=== PATIENT | female | born 1960 | race Hispanic/Latino ===

== ENCOUNTER → 2018-05-25 | Outpatient (CLI) | payer OTHER | END | disposition home or self-care (01) | LOC: RAH 09:17 | PROVIDERS: ATTEND Internal Medicine Critical Care Medicine | DX: M47.22 Other spondylosis with radiculopathy, cervical region (principal) | CPT/HCPCS: 72040 ==

== ENCOUNTER → 2018-10-19 | Outpatient (CLI) | payer OTHER | END | disposition home or self-care (01) | LOC: SHCH 15:02 | PROVIDERS: ATTEND Internal Medicine Cardiovascular Disease | DX: I50.20 Unspecified systolic (congestive) heart failure (principal); I51.7 Cardiomegaly; R60.9 Edema, unspecified | CPT/HCPCS: 93306 ==

== ENCOUNTER → 2018-10-21 | Outpatient (CLI) | payer OTHER ==
[~2018-10-21] VITALS: Ht 152.4 cm; Wt 100.7 kg
[~2018-10-21] MED LIST: REGADENOSON 0.4 MG/5 ML PF SYG IVP SCH
== END | disposition home or self-care (01) ==
LOC: SHCH 08:23
PROVIDERS: ATTEND Internal Medicine Cardiovascular Disease
DX: I25.10 Atherosclerotic heart disease of native coronary artery without angina pectoris (principal); I10 Essential (primary) hypertension
CPT/HCPCS: 78452; 93017; 96374; A9500 ×2; J2785

== ENCOUNTER 2018-12-22 06:01 | Observation (INO) | payer OTHER ==
[2018-12-20 11:00] LABS: APPEARANCE,URINE CLEAR (CLEAR); BILIRUBIN,URINE NEGATIVE (NEGATIVE); COLOR,URINE YELLOW (YELLOW); GLUCOSE, URINE (UA) 100 mg/dL (NEGATIVE); KETONES,URINE NEGATIVE (NEGATIVE); LEUKOCYTE ESTERASE ,URINE SMALL (NEGATIVE); NITRATE,URINE NEGATIVE (NEGATIVE); OCCULT BLOOD,URINE TRACE-LYSED (NEGATIVE); PROTEIN,URINE >=300 mg/dL (NEGATIVE); UROBILINOGEN,URINE 0.2 mg/dL (0.2-1.0)
[2018-12-20 11:01] LABS: BASOPHILS % (AUTO) 1.2 % (0.0-5.0); HEMATOCRIT 33.6 % (36-48); LYMPHOCYTES % (AUTO) 18.4 % (21.0-51.0); MEAN CORPUSCULAR HEMOGLOBIN 26.2 pg (27.0-33.0); MEAN CORPUSCULAR HGB CONC 32.3 g/dL (32.0-36.0); MEAN CORPUSCULAR VOLUME 81.1 fL (79-99); MONOCYTES % (AUTO) 6.6 % (3.0-13.0); NEUTROPHILS % (AUTO) 67.8 % (40.0-77.0); PLATELET COUNT (AUTO) 230 K/uL (130-400); RED BLOOD CELL COUNT(AUTO) 4.14 MIL/uL (4.00-5.50); WHITE BLOOD COUNT (AUTO) 6.3 K/uL (4.8-10.8)
[2018-12-20 11:12] LABS: BACTERIA,URINE Rare /HPF (None Seen); CREATININE 3.4 mg/dL (0.5-1.5); POTASSIUM 4.7 mmol/L (3.5-5.1); RBC,URINE 0-1 /HPF (0-1); SQUAMOUS EPITHELIAL CELL,UR Few /HPF (0-2); WBC,URINE 0-1 /HPF (0-1)
[2018-12-20 11:42] LABS: INR 1.03 (0.85-1.15); PARTIAL THROMBOPLASTIN TIME 27.7 SEC (26.3-35.5); PROTHROMBIN TIME 10.8 SEC (9.6-11.6)
[2018-12-20 13:05] VITALS: BP 180/80
[2018-12-21] MEDS: ACETYLCYSTEINE 600 MG CAPSULE PO SCH (07:45)
--- NOTE | 2018-12-21 08:40 | NUR ---
ABNORMAL LABS ABNORMAL LABS REPORTED TO KAYODE SANDHU FOR DR. HARDIN, BUN 60, CREAT 3.4,UA LEUKEST SMALL, NITRATES NEGATIVE, H & H 10.9 & 33.6. PER ALEXANDER, HE WILL CALL ME BACK.
--- NOTE | 2018-12-21 12:30 | NUR ---
ORDERS CALL BACK FROM KAYODE PISANO. ORDERED TO GIVE NS 250 ML BOLUS UPON ARRIVAL, THEN NS 70 ML/HR UNTIL PT GOES TO PROCEDURE. REPEAT BMP AT NOON. GIVE MUCOMYST 600 MG PO X1 UPON ARRIVAL.
[~2018-12-22] VITALS: Ht 152.4 cm; Wt 103.2 kg
[2018-12-22] VITALS (20 sets, daily range): BP systolic 108–182; BP diastolic 51–83
[~2018-12-22 06:01] MED LIST changes: +ASPI-555 PO; +CLOP75TA32 PO; +ESCI20TA36 PO; +GABA-531 PO; +GLIP5TAB11 PO; +ISOS1TAB2 PO; +LEVO25TA54 PO; +METO-408 PO; -REGADENOSON 0.4 MG/5 ML PF SYG IVP SCH; +ROSU10TA28 PO; +TORS20TA4 PO; +[UNRECOGNIZED DRUG - OTHER] PO; +[UNRECOGNIZED DRUG - OTHER] PO
--- NOTE | 2018-12-22 06:05 | NUR ---
PATIENT ARRIVED PATIENT ARRIVED TO DAY PATIENT ACCOMPANIED BY SON (SHILPA). PATIENT AAO X3, RESPIRATIONS UNLABORED, VITAL SIGNS STABLE, PATIENT DENIES ANY PAIN AT THIS TIME. PROCEDURE VERIFIED WITH PATIENT AND EXPLAINED TO HER, PATIENT VERBALIZED UNDERSTANDING. PATIENT STATES THAT SHE IS VERY NERVOUS ABOUT THE PROCEDURE, REASSURED PATIENT THAT EVERYTHING WOULD BE OK AND TO USE CALL [facility] IF SHE NEEDS ANYTHING. HOSPITAL ROUTINE EXPLAINED TO PATIENT AND PATIENT VERBALIZED UNDERSTANDING. BED IN LOWEST POSITION, CALL [facility] IN REACH, SIDERAILS UP X2.
[2018-12-22] MEDS: SODIUM CHLORIDE 0.9% 1000ML 1,000 ML IV SCH ×2 (09:10→18:06)
[2018-12-22] MEDS ORDERED: NITROGLYCERIN 5 MG/ML 10 ML VIAL IV ONE (10:33)
[2018-12-22] MEDS ORDERED: IOHEXOL-350 75 ML VIAL IV ONE (10:34)
[2018-12-22] MEDS ORDERED: IOHEXOL 350 MG/ML 100ML INFUS..BTL IV ONE (10:34)
[2018-12-22] MEDS ORDERED: IOHEXOL-350 50ML VIAL IV ONE (10:34)
[2018-12-22] MEDS ORDERED: LIDOCAINE HCL 2% 20ML ONE (10:34)
--- NOTE | 2018-12-22 10:45 | NUR ---
PATIENT TRANSFERRED PATIENT TAKEN TO HAND II CUTTER VIA BED BY RADHA FENG. CALLED PATIENT'S SON AND NOTIFIED HIM THAT PATIENT WAS BEING TAKEN TO HAND II CUTTER, PER SON HE WILL ARRIVE SHORTLY.
[2018-12-22] MEDS ORDERED: MIDAZOLAM HCL 1 MG/ML 2ML VIAL ONE (11:09)
[2018-12-22] MEDS ORDERED: FENTANYL CITRATE PF 50 MCG/1 ML 2ML VIAL ONE (11:10)
[2018-12-22] MEDS ORDERED: HYDRALAZINE HCL 20 MG/ML VIAL ONE ×3 (11:44→12:03)
[2018-12-22] MEDS ORDERED: SODIUM CHLORIDE 0.9% 1000ML 1,000 ML IV SCH (11:50)
[2018-12-22] MEDS ORDERED: GLUCAGON 1MG KIT 1 MG ML IM PRN (12:00)
[2018-12-22] MEDS ORDERED: DEXTROSE 50%-WATER 50 ML DISP.SYRIN IV PRN (12:00)
[2018-12-22] MEDS ORDERED: NITROGLYCERIN 0.4 MG SL TAB SL PRN (12:00)
--- NOTE | 2018-12-22 12:45 | NUR ---
PATIENT RETURNED PATIENT BROUGHT BACK FROM CAR RECORD CLERK VIA BED BY RADHA FENG AND RADHA GREEN. PATIENT AWAKE AND ORIENTED, PATIENT DROWSY BUT RESPONDS TO VERBAL COMMANDS. PATIENT DENIES ANY PAIN AT THIS TIME, VITAL SIGNS STABLE, REQUIRES OXYGEN AT 2LITERS VIA NASAL CANULA TO MAINTAIN SATS >90%. PATIENT'S SON AT BEDSIDE. PATIENT INSTRUCTED TO REMAIN MIROS[place]VA FLAT AND KEEP RIGHT LEG STRAIGHT AND FLAT FOR 4 HOURS. PATIENT VERBALIZED UNDERSTANDING.
[2018-12-22] MEDS ORDERED: ACETAMINOPHEN 325 MG TAB PO PRN (14:00)
[2018-12-22] MEDS: ACETYLCYSTEINE 600 MG CAPSULE PO SCH (14:45)
[2018-12-22] MEDS: GABAPENTIN 300 MG CAPSULE PO SCH ×2 (14:46→21:49)
[2018-12-22] MEDS: HYDRALAZINE HCL 20 MG/ML VIAL IV PRN ×2 (15:35→17:37)
--- NOTE | 2018-12-22 15:50 | NUR ---
report given CALLED REPORT TO RADHA KAUFMAN. GAVE REPORT USING SBAR, ALL QUESTIONS ANSWERED REGARDING PATIENT'S MEDICAL STATUS.
--- NOTE | 2018-12-22 16:10 | NUR ---
PATIENT TRANSFERRED TO FLOOR PATIENT TAKEN TO THIRD FLOOR RM 301 BY RADHA ANSARI AND RADHA POLLOCK. RADHA KAUFMAN IN ROOM WITH PATIENT.
[2018-12-22] MEDS: INSULIN HUMULIN R 100 UNIT/ML 3ML SQ SCH ×2 (16:30→21:00)
[2018-12-22] MEDS: CALCIUM ACETATE 667 MG CAPSULE PO SCH (17:29)
[2018-12-22] MEDS: METOPROLOL TARTRATE 25 MG TAB PO SCH (21:49)
[2018-12-22] MEDS: GLIPIZIDE 5 MG TABLET PO SCH (21:50)
[2018-12-23 03:56] VITALS: BP 129/50
[2018-12-23 04:59] LABS: CREATININE 3.1 mg/dL (0.5-1.5); POTASSIUM 4.3 mmol/L (3.5-5.1)
[2018-12-23] MEDS: INSULIN HUMULIN R 100 UNIT/ML 3ML SQ SCH ×2 (06:25→11:30)
[2018-12-23] MEDS: ACETYLCYSTEINE 600 MG CAPSULE PO SCH (08:00)
[2018-12-23 08:35] VITALS: BP 156/65
[2018-12-23] MEDS: CALCIUM ACETATE 667 MG CAPSULE PO SCH ×2 (08:45→12:14)
[2018-12-23] MEDS: GABAPENTIN 300 MG CAPSULE PO SCH (08:46)
[2018-12-23] MEDS: GLIPIZIDE 5 MG TABLET PO SCH (08:46)
[2018-12-23] MEDS: METOPROLOL TARTRATE 25 MG TAB PO SCH (08:46)
[2018-12-23] MEDS: SODIUM CHLORIDE 0.9% 1000ML 1,000 ML IV SCH (08:47)
[2018-12-23] MEDS ORDERED: CITALOPRAM 20 MG TABLET PO SCH (09:00)
[2018-12-23] MEDS ORDERED: CLOPIDOGREL BISULFATE 75 MG TAB PO SCH (09:00)
[2018-12-23] MEDS ORDERED: ATORVASTATIN CALCIUM 20 MG TABLET PO SCH (09:00)
[2018-12-23] MEDS ORDERED: ASPIRIN 81 MG EC TAB PO SCH (09:00)
[2018-12-23] MEDS ORDERED: LEVOTHYROXINE 25 MCG TABLET PO SCH (09:00)
[2018-12-23] MEDS ORDERED: [UNRECOGNIZED DRUG - OTHER] PO SCH (09:00)
[2018-12-23] MEDS ORDERED: BIDIL PO SCH (09:00)
[2018-12-23] MEDS ORDERED: TORSEMIDE 20 MG TAB PO SCH (09:00)
[2018-12-23 11:58] VITALS: BP 180/66
--- NOTE | 2018-12-23 12:31 | NUR ---
MD ROUNDS DR. BRUNER VISITED WITH PATIENT. POC DISCUSSED. ORDER RECEIVED TO D/C PATIENT HOME. CONTINUE HOME MEDICATIONS AND F/U WITH CARDIOLOGY AND PCP.
== END 2018-12-23 13:20 | disposition home or self-care (01) ==
LOC: DAH 06:01 → DAHIP 06:02 → DAH 06:02 → 3AH 16:25
PROVIDERS: ADMIT Internal Medicine Critical Care Medicine; ATTEND Internal Medicine Critical Care Medicine
DX: I25.10 Atherosclerotic heart disease of native coronary artery without angina pectoris (principal); I13.2 Hypertensive heart and chronic kidney disease with heart failure and with stage 5 chronic kidney disease, or end stage renal disease; I50.43 Acute on chronic combined systolic (congestive) and diastolic (congestive) heart failure; N18.5 Chronic kidney disease, stage 5; E11.22 Type 2 diabetes mellitus with diabetic chronic kidney disease; E66.9 Obesity, unspecified; E78.2 Mixed hyperlipidemia; F41.8 Other specified anxiety disorders; Z90.49 Acquired absence of other specified parts of digestive tract; Z90.710 Acquired absence of both cervix and uterus; Z79.899 Other long term (current) drug therapy
CPT/HCPCS: 36415 ×2; 71045; 80048 ×2; 81001; 82948 ×4; 85025; 85610; 85730; 93005; 93454; 96374; 96376; A4215; A4216; A4221; A4222; A4223 ×3; A4606; C1894 ×2; G0378 ×25; J0360 ×5; J1644; J2250; J3010; J3490 ×2; J7030 ×2; Q9965; Q9967; 96360; 96361; 99156; 99157

== ENCOUNTER 2019-01-04 10:46 | Observation (INO) | payer OTHER ==
[~2019-01-04] VITALS: Ht 152.4 cm; Wt 103.1 kg
[2019-01-04 11:40] LABS: BASOPHILS % (AUTO) 1.3 % (0.0-5.0); EOSINOPHILS % (AUTO) 3.1 % (0.0-8.0); HEMATOCRIT 29.1 % (36-48); LYMPHOCYTES % (AUTO) 10.8 % (21.0-51.0); MEAN CORPUSCULAR HEMOGLOBIN 26.3 pg (27.0-33.0); MEAN CORPUSCULAR HGB CONC 32.5 g/dL (32.0-36.0); MEAN CORPUSCULAR VOLUME 80.7 fL (79-99); MONOCYTES % (AUTO) 5.5 % (3.0-13.0); NEUTROPHILS % (AUTO) 79.3 % (40.0-77.0); NUCLEATED RED BLOOD CELLS 0.1 % (0.0-0.19); PLATELET COUNT (AUTO) 257 K/uL (130-400); RED CELL DISTRIBUTION WIDTH 17.9 % (11.0-15.5); WHITE BLOOD COUNT (AUTO) 7.8 K/uL (4.8-10.8)
[2019-01-04 11:48] LABS: CREATININE 4.1 mg/dL (0.5-1.5); POTASSIUM 4.7 mmol/L (3.5-5.1)
[2019-01-04 11:53] LABS: ALBUMIN 2.6 g/dL (3.5-5.0); BILIRUBIN,TOTAL 0.6 mg/dL (0.2-1.0); TOTAL PROTEIN, SERUM 6.7 g/dL (6.0-8.3)
[2019-01-04] MEDS ORDERED: FUROSEMIDE 10 MG/ML 4ML VIAL ONE (13:18)
[2019-01-04] MEDS ORDERED: SODIUM CHLORIDE 0.9% 50 ML IV ONE (13:19)
[2019-01-04] MEDS ORDERED: HEPARIN SODIUM 5000UNIT/ML 1ML VIAL SQ SCH (15:15)
[2019-01-04] MEDS ORDERED: HYDRALAZINE HCL 20 MG/ML VIAL IV PRN (15:15)
[2019-01-04] MEDS: AMLODIPINE BESYLATE 5 MG TAB PO SCH (16:15)
[2019-01-04] MEDS ORDERED: CALCIUM ACETATE 667 MG CAPSULE PO SCH (17:00)
[2019-01-04] MEDS ORDERED: AMLODIPINE BESYLATE 5 MG TAB PO ONE (17:04)
[2019-01-04 17:44] VITALS: BP 136/60
[2019-01-04] MEDS ORDERED: LABE200T5 PO (18:14)
[2019-01-04] MEDS ORDERED: GABA-531 PO (18:14)
[2019-01-04] MEDS ORDERED: CALC667C10 PO (18:14)
[2019-01-04] MEDS ORDERED: GLIP5POW MC (18:14)
[2019-01-04] MEDS ORDERED: TORS20TA4 PO (18:14)
[2019-01-04 19:45] VITALS: BP 176/67
[2019-01-04] MEDS ORDERED: METOPROLOL TARTRATE 25 MG TAB PO SCH (21:00)
[2019-01-04] MEDS ORDERED: ATORVASTATIN CALCIUM 20 MG TABLET PO SCH (21:00)
[2019-01-04] MEDS: ISOSORB DINIT PO SCH (21:00)
[2019-01-04] MEDS: HYDRALAZINE HCL PO SCH (21:00)
[2019-01-04] MEDS: LABETALOL HCL 200 MG TABLET PO SCH (21:01)
[2019-01-04] MEDS: GABAPENTIN 100 MG CAPSULE PO SCH (21:01)
[2019-01-04] MEDS: HEPARIN SODIUM 5000UNIT/ML 1ML VIAL SQ SCH (21:25)
[2019-01-04 23:42] VITALS: BP 123/64
[2019-01-05 03:56] VITALS: BP 142/62
[2019-01-05 04:12] LABS: HEMATOCRIT 29.3 % (36-48); MEAN CORPUSCULAR HEMOGLOBIN 25.6 pg (27.0-33.0); MEAN CORPUSCULAR HGB CONC 32.1 g/dL (32.0-36.0); MEAN CORPUSCULAR VOLUME 79.9 fL (79-99); PLATELET COUNT (AUTO) 287 K/uL (130-400); RED BLOOD CELL COUNT(AUTO) 3.67 MIL/uL (4.00-5.50); RED CELL DISTRIBUTION WIDTH 17.6 % (11.0-15.5); WHITE BLOOD COUNT (AUTO) 8.3 K/uL (4.8-10.8)
[2019-01-05 04:35] LABS: CREATININE 4.2 mg/dL (0.5-1.5); POTASSIUM 4.5 mmol/L (3.5-5.1); THYROID STIMULATING HORMONE 3.98 uIU/mL (0.36-3.74)
[2019-01-05 04:49] LABS: B-TYPE NATRIURETIC PEPTIDE 538 pg/mL (0-100)
[2019-01-05] MEDS ORDERED: LEVOTHYROXINE 25 MCG TABLET PO SCH (06:30)
[2019-01-05 07:21] VITALS: BP 143/72
[2019-01-05] MEDS ORDERED: CITALOPRAM 20 MG TABLET PO SCH (09:00)
[2019-01-05] MEDS: HYDRALAZINE HCL PO SCH ×2 (09:00→14:00)
[2019-01-05] MEDS ORDERED: CLOPIDOGREL BISULFATE 75 MG TAB PO SCH (09:00)
[2019-01-05] MEDS: ISOSORB DINIT PO SCH ×2 (09:00→14:00)
[2019-01-05] MEDS ORDERED: [UNRECOGNIZED DRUG - OTHER] PO SCH (09:00)
[2019-01-05] MEDS ORDERED: ASPIRIN 81 MG EC TAB PO SCH (09:00)
[2019-01-05] MEDS: AMLODIPINE BESYLATE 5 MG TAB PO SCH (09:11)
[2019-01-05] MEDS: CALCIUM ACETATE 667 MG CAPSULE PO SCH ×3 (09:11→17:00)
[2019-01-05] MEDS: GABAPENTIN 100 MG CAPSULE PO SCH (09:12)
[2019-01-05] MEDS: LABETALOL HCL 200 MG TABLET PO SCH (09:12)
[2019-01-05] MEDS: HEPARIN SODIUM 5000UNIT/ML 1ML VIAL SQ SCH (09:13)
[2019-01-05 10:58] VITALS: BP 142/58
[2019-01-05] MEDS ORDERED: FUROSEMIDE 10 MG/ML 10ML VIAL IVP SCH (13:00)
[2019-01-05 15:15] VITALS: BP 166/72
== END 2019-01-05 19:00 | disposition home or self-care (01) ==
LOC: EDH 10:46 → EDHIP 10:47 → 2AH 18:29
PROVIDERS: ADMIT Internal Medicine Critical Care Medicine; ATTEND Internal Medicine Critical Care Medicine
DX: I13.2 Hypertensive heart and chronic kidney disease with heart failure and with stage 5 chronic kidney disease, or end stage renal disease (principal); E11.22 Type 2 diabetes mellitus with diabetic chronic kidney disease; N18.5 Chronic kidney disease, stage 5; I50.33 Acute on chronic diastolic (congestive) heart failure; R60.0 Localized edema; N17.9 Acute kidney failure, unspecified; I25.10 Atherosclerotic heart disease of native coronary artery without angina pectoris; E78.5 Hyperlipidemia, unspecified; R00.1 Bradycardia, unspecified; D64.9 Anemia, unspecified; E03.9 Hypothyroidism, unspecified; F41.9 Anxiety disorder, unspecified; E66.01 Morbid (severe) obesity due to excess calories; E87.70 Fluid overload, unspecified; F32.9 Major depressive disorder, single episode, unspecified; Z95.818 Presence of other cardiac implants and grafts; Z90.710 Acquired absence of both cervix and uterus; Z98.61 Coronary angioplasty status; Z90.49 Acquired absence of other specified parts of digestive tract; Z79.02 Long term (current) use of antithrombotics/antiplatelets; Z79.82 Long term (current) use of aspirin; Z79.899 Other long term (current) drug therapy; Z68.41 Body mass index [BMI] 40.0-44.9, adult
CPT/HCPCS: 36415 ×2; 71045 ×2; 80048; 80053; 82948 ×4; 83880; 84443; 84484; 85025; 85027; 87804 ×2; 93005 ×2; 93970; 96372 ×2; 96374; 99284; G0378 ×29; J1644 ×2; J1940 ×2

== ENCOUNTER 2019-09-03 16:10 | Inpatient (IN) | payer OTHER ==
[~2019-09-03] VITALS: Ht 152.4 cm; Wt 91.6 kg
[~2019-09-03 16:10] MED LIST changes: +CALC667C10 PO; +GLIP5POW MC; -GLIP5TAB11 PO; +LABE200T5 PO; -[UNRECOGNIZED DRUG - OTHER] PO
[2019-09-03] MEDS ORDERED: SODIUM CHLORIDE 0.9% 1000ML 1,000 ML IV ONE (16:46)
[2019-09-03] MEDS ORDERED: CEFTRIAXONE SODIUM 2 GM VIAL ONE (16:46)
[2019-09-03 17:03] LABS: BASOPHILS % (AUTO) 0.5 % (0.0-5.0); EOSINOPHILS % (AUTO) 2.3 % (0.0-8.0); HEMATOCRIT 36.1 % (36-48); MEAN CORPUSCULAR HEMOGLOBIN 26.9 pg (27.0-33.0); MEAN CORPUSCULAR VOLUME 81.5 fL (79-99); MONOCYTES % (AUTO) 6.8 % (3.0-13.0); NEUTROPHILS % (AUTO) 78.1 % (40.0-77.0); PLATELET COUNT (AUTO) 270 K/uL (130-400); RED BLOOD CELL COUNT(AUTO) 4.43 MIL/uL (4.00-5.50); RED CELL DISTRIBUTION WIDTH 15.8 % (11.0-15.5); WHITE BLOOD COUNT (AUTO) 8.7 K/uL (4.8-10.8)
[2019-09-03 17:10] LABS: INR 0.99 (0.85-1.15); PARTIAL THROMBOPLASTIN TIME 24.1 SEC (26.3-35.5); PROTHROMBIN TIME 10.7 SEC (9.6-11.6)
[2019-09-03 17:18] LABS: ALBUMIN 3.6 g/dL (3.5-5.0); BILIRUBIN,TOTAL 0.5 mg/dL (0.2-1.0); CREATININE 5.8 mg/dL (0.5-1.5); TOTAL PROTEIN, SERUM 8.3 g/dL (6.0-8.3); TROPONIN I 0.15 ng/mL (0.00-0.06)
[2019-09-03 17:28] LABS: POTASSIUM 2.6 mmol/L (3.5-5.1)
[2019-09-03 17:49] LABS: APPEARANCE,URINE Clear (CLEAR); BILIRUBIN,URINE Negative (NEGATIVE); COLOR,URINE Yellow (YELLOW); GLUCOSE, URINE (UA) Negative (NEGATIVE); KETONES,URINE Negative (NEGATIVE); LEUKOCYTE ESTERASE ,URINE Trace (NEGATIVE); NITRATE,URINE Positive (NEGATIVE); OCCULT BLOOD,URINE Trace (NEGATIVE); PH,URINE 6.5 (5.0-8.0); PROTEIN,URINE POS 2+ mg/dL (NEGATIVE); UROBILINOGEN,URINE 0.2 mg/dL (0.2-1.0)
[2019-09-03] MEDS ORDERED: ASPIRIN 325 MG TABLET ONE (17:51)
[2019-09-03] MEDS ORDERED: LIDOCAINE HCL-MPF 1% 2ML VIAL ONE (17:51)
[2019-09-03] MEDS ORDERED: POTASSIUM CHLORIDE 20MEQ/100ML 100 ML IV ONE (17:51)
[2019-09-03 18:05] LABS: BACTERIA,URINE Rare /HPF (None Seen); RBC,URINE 0-1 /HPF (0-1); SQUAMOUS EPITHELIAL CELL,UR Few /HPF (0-2); WBC,URINE 0-1 /HPF (0-1)
[2019-09-03] MEDS ORDERED: LIDOCAINE HCL-MPF 1% 2ML VIAL IV PRN (19:15)
[2019-09-03] MEDS ORDERED: POTASSIUM CHLORIDE 10MEQ/100ML 100 ML IV PRN (19:15)
[2019-09-03] MEDS ORDERED: POTASSIUM CHLORIDE 10% ELIXIR 20 MEQ/15 ML UDCUP PO PRN (19:15)
[2019-09-03] MEDS ORDERED: ONDANSETRON HCL 4 MG/2 ML VIAL IVP PRN (19:30)
[2019-09-03] MEDS ORDERED: ACETAMINOPHEN 325 MG TAB PO PRN (19:30)
[2019-09-03 20:35] VITALS: BP 146/62
[2019-09-03] MEDS ORDERED: IRON PO (20:40)
[2019-09-03] MEDS ORDERED: GLIP5TAB11 PO (20:40)
[2019-09-03] MEDS ORDERED: [UNRECOGNIZED DRUG - OTHER] PO (20:40)
[2019-09-03] MEDS ORDERED: VITAMIN B 12 (20:40)
[2019-09-03] MEDS ORDERED: SODIUM BICAR PO (20:40)
[2019-09-03] MEDS ORDERED: FERR325T22 PO (20:40)
[2019-09-03] MEDS ORDERED: CALC0.253 PO (20:40)
[2019-09-03] MEDS ORDERED: METO2.5T2 PO (20:40)
[2019-09-03] MEDS ORDERED: CHOL500045 PO (20:40)
[2019-09-03] MEDS: INSULIN R PO SS1/2 SQ SCH (21:00)
[2019-09-03] MEDS: POTASSIUM CHLORIDE 10 MEQ/TAB.SR PO PRN ×2 (21:24→23:30)
[2019-09-03] MEDS: SODIUM CHLORIDE 0.9% 1000ML 1,000 ML IV SCH (21:27)
[2019-09-04] VITALS: BP 138/41
[2019-09-04] MEDS: POTASSIUM CHLORIDE 10 MEQ/TAB.SR PO PRN ×2 (02:07→04:27)
[2019-09-04 03:56] VITALS: BP 141/47
[2019-09-04] MEDS: INSULIN R PO SS1/2 SQ SCH ×4 (06:05→21:00)
[2019-09-04 06:07] LABS: HEMATOCRIT 33.6 % (36-48); MEAN CORPUSCULAR HEMOGLOBIN 27.2 pg (27.0-33.0); MEAN CORPUSCULAR HGB CONC 32.7 g/dL (32.0-36.0); MEAN CORPUSCULAR VOLUME 83.2 fL (79-99); RED BLOOD CELL COUNT(AUTO) 4.04 MIL/uL (4.00-5.50); RED CELL DISTRIBUTION WIDTH 15.8 % (11.0-15.5)
[2019-09-04] MEDS: SODIUM CHLORIDE 0.9% 1000ML 1,000 ML IV SCH (06:11)
[2019-09-04 06:24] LABS: CREATININE 5.5 mg/dL (0.5-1.5); POTASSIUM 3.4 mmol/L (3.5-5.1)
[2019-09-04 08:00] VITALS: BP 111/60
[2019-09-04 11:00] VITALS: BP 173/50
--- NOTE | 2019-09-04 12:00 | NUR ---
CONSULT CALLED DR. RYAN'S OFFICE REGARDING CONSULT. NO ANSWER AT THIS TIME.
--- NOTE | 2019-09-04 14:55 | NUR ---
INITIAL CALL TO PT, NO ANSWER, CALL TO SON AGNES; STATES HE LIVES WITH PATIENT AND AUNT- PATIENT USES A CANE, IS INDEPENDENT OF ADLS, DOES NOT DRIVE, HAS NO PROVIDER SERVICES, SEES DR. HOUGH AT [facility]; HOME IS SAFE AND ACCESSIBLE. NUMBER OF NURSE TODAY GIVEN, ELSI UPSET THAT NO ONE HAS HAS CALLED HIM TO UPDATE ON PATIENT/ ADVISED HIM TO CALL NURSE FOR INFO. DCP IS HOME. PATIENT WITH GFR OF 5. POSSIBLE HD THIS ADMIT Addendum: 09/04/19 at 1502 by JM MERLOS RN CM Amended: Links added.
[2019-09-04] MEDS ORDERED: CALCITRIOL 0.25 MCG CAPSULE PO SCH (15:00)
[2019-09-04 15:30] VITALS: BP 146/49
[2019-09-04] MEDS ORDERED: CEFTRIAXONE SODIUM 1 GM IVP SCH (17:00)
[2019-09-04] MEDS: CALCIUM ACETATE 667 MG CAPSULE PO SCH (17:08)
--- NOTE | 2019-09-04 17:19 | NUR ---
[id number] PATIENT SIGNED IM LETTER, I FAXED IM LETTER TO [phone] AND PLACED IN CHART UNDER CONSENT TAB.
[2019-09-04 20:00] VITALS: BP 152/39
[2019-09-04] MEDS ORDERED: ATORVASTATIN CALCIUM 20 MG TABLET PO SCH (21:00)
[2019-09-04] MEDS: ISOSORB DINIT PO SCH (21:00)
[2019-09-04] MEDS: [UNRECOGNIZED DRUG - OTHER] PO SCH (21:00)
[2019-09-04] MEDS: HYDRALAZINE HCL PO SCH (21:00)
[2019-09-04] MEDS ORDERED: LABETALOL HCL 200 MG TABLET PO SCH (21:00)
[2019-09-04] MEDS: SODIUM BICARBONATE 650 MG TAB PO SCH (21:43)
[2019-09-04] MEDS: GABAPENTIN 300 MG CAPSULE PO SCH (21:43)
[2019-09-05] VITALS: BP 121/43
[2019-09-05] MEDS: SODIUM CHLORIDE 0.9% 1000ML 1,000 ML IV SCH (00:50)
[2019-09-05 04:00] VITALS: BP 131/44
[2019-09-05 05:53] LABS: HEMATOCRIT 32.1 % (36-48); MEAN CORPUSCULAR HEMOGLOBIN 27.6 pg (27.0-33.0); MEAN CORPUSCULAR HGB CONC 32.7 g/dL (32.0-36.0); MEAN CORPUSCULAR VOLUME 84.5 fL (79-99); RED BLOOD CELL COUNT(AUTO) 3.8 MIL/uL (4.00-5.50); RED CELL DISTRIBUTION WIDTH 15.9 % (11.0-15.5); WHITE BLOOD COUNT (AUTO) 6.8 K/uL (4.8-10.8)
[2019-09-05] MEDS: INSULIN R PO SS1/2 SQ SCH ×2 (06:11→11:30)
[2019-09-05 06:26] LABS: ALBUMIN 2.8 g/dL (3.5-5.0); CREATININE 4.5 mg/dL (0.5-1.5); PHOSPHORUS 3.7 mg/dL (2.5-4.9); POTASSIUM 3.2 mmol/L (3.5-5.1)
[2019-09-05] MEDS ORDERED: LEVOTHYROXINE 25 MCG TABLET PO SCH (06:30)
[2019-09-05 07:27] VITALS: BP 180/66
[2019-09-05] MEDS: CALCIUM ACETATE 667 MG CAPSULE PO SCH ×2 (08:00→12:00)
[2019-09-05] MEDS ORDERED: CYANOCOBALAMIN (VITAMIN B-12) 1,000 MCG TABLET PO SCH (09:00)
[2019-09-05] MEDS: HYDRALAZINE HCL PO SCH ×2 (09:00→12:52)
[2019-09-05] MEDS ORDERED: ASPIRIN 81 MG EC TAB PO SCH (09:00)
[2019-09-05] MEDS ORDERED: CITALOPRAM 20 MG TABLET PO SCH (09:00)
[2019-09-05] MEDS ORDERED: IRON 65 MG PO SCH (09:00)
[2019-09-05] MEDS: [UNRECOGNIZED DRUG - OTHER] PO SCH (09:00)
[2019-09-05] MEDS: ISOSORB DINIT PO SCH ×2 (09:00→12:52)
[2019-09-05] MEDS ORDERED: CLOPIDOGREL BISULFATE 75 MG TAB PO SCH (09:00)
[2019-09-05] MEDS ORDERED: CHOLECALCIFEROL 125 MCG PO SCH (09:00)
[2019-09-05] MEDS ORDERED: FERROUS SULFATE 325 MG TABLET.DR PO SCH (09:00)
[2019-09-05] MEDS ORDERED: METOPROLOL SUCCINATE 50 MG TAB.SR.24H PO SCH ×2 (09:00)
[2019-09-05] MEDS: SODIUM BICARBONATE 650 MG TAB PO SCH ×2 (09:15→14:00)
[2019-09-05] MEDS: GABAPENTIN 300 MG CAPSULE PO SCH ×2 (09:15→14:00)
[2019-09-05 10:49] VITALS: BP 184/65
== END 2019-09-05 16:30 | disposition home or self-care (01) | DRG 683 ==
LOC: EDH 16:10 → INTOOBSV 18:02 → EDHIP 18:02 → OBSVTOIN 18:02 → 3BH 19:28
PROVIDERS: ADMIT Internal Medicine Critical Care Medicine; ATTEND Internal Medicine Critical Care Medicine
DX: N17.9 Acute kidney failure, unspecified (principal); I50.22 Chronic systolic (congestive) heart failure; I13.2 Hypertensive heart and chronic kidney disease with heart failure and with stage 5 chronic kidney disease, or end stage renal disease; N39.0 Urinary tract infection, site not specified; E87.3 Alkalosis; N18.5 Chronic kidney disease, stage 5; I25.10 Atherosclerotic heart disease of native coronary artery without angina pectoris; E03.9 Hypothyroidism, unspecified; E78.5 Hyperlipidemia, unspecified; E66.01 Morbid (severe) obesity due to excess calories; R29.6 Repeated falls; D63.1 Anemia in chronic kidney disease; E11.22 Type 2 diabetes mellitus with diabetic chronic kidney disease; E86.9 Volume depletion, unspecified; S40.022A Contusion of left upper arm, initial encounter; S20.229A Contusion of unspecified back wall of thorax, initial encounter; Z68.39 Body mass index [BMI] 39.0-39.9, adult; Z90.710 Acquired absence of both cervix and uterus; Z90.49 Acquired absence of other specified parts of digestive tract; Y93.89 Activity, other specified; Y92.89 Other specified places as the place of occurrence of the external cause; Y99.8 Other external cause status
CPT/HCPCS: 36415; 70450; 71045; 80048; 80053; 80069; 81001; 82550; 82948; 83605; 83735; 83874; 84145; 84484; 85025; 85027; 85610; 85730; 87040; 87088; 87804; 93005; 93306; 93356; G0378; J0696; J3480; J3490; J7030

== ENCOUNTER 2020-03-06 06:16 | Day surgery (SDC) | payer OTHER ==
[2020-03-01 10:09] LABS: BASOPHILS % (AUTO) 0.6 % (0.0-5.0); EOSINOPHILS % (AUTO) 2.4 % (0.0-8.0); HEMATOCRIT 40.1 % (36-48); LYMPHOCYTES % (AUTO) 16.8 % (21.0-51.0); MEAN CORPUSCULAR HEMOGLOBIN 28.4 pg (27.0-33.0); MEAN CORPUSCULAR HGB CONC 31.4 g/dL (32.0-36.0); MEAN CORPUSCULAR VOLUME 90.3 fL (79-99); MONOCYTES % (AUTO) 4.8 % (3.0-13.0); NEUTROPHILS % (AUTO) 74.8 % (40.0-77.0); PLATELET COUNT (AUTO) 246 K/uL (130-400); RED BLOOD CELL COUNT(AUTO) 4.44 MIL/uL (4.00-5.50); RED CELL DISTRIBUTION WIDTH 15.4 % (11.0-15.5); WHITE BLOOD COUNT (AUTO) 7.2 K/uL (4.8-10.8)
[2020-03-01 10:24] LABS: INR 0.96 (0.85-1.15); PARTIAL THROMBOPLASTIN TIME 24.4 SEC (26.3-35.5); PROTHROMBIN TIME 10.4 SEC (9.6-11.6)
[2020-03-01 10:25] LABS: ALBUMIN 3.3 g/dL (3.5-5.0); BILIRUBIN,TOTAL 0.3 mg/dL (0.2-1.0); CREATININE 3.9 mg/dL (0.5-1.5); POTASSIUM 4.5 mmol/L (3.5-5.1); TOTAL PROTEIN, SERUM 7.4 g/dL (6.0-8.3)
[2020-03-05 12:31] VITALS: BP 198/73
[~2020-03-06] VITALS: Ht 152.4 cm; Wt 93.4 kg
[2020-03-06] VITALS (19 sets, daily range): BP systolic 133–190; BP diastolic 45–80
[~2020-03-06 06:16] MED LIST changes: -ASPI-555 PO; +ASPI-556 PO; -CALC667C10 PO; +CYAN-52 PO; -GABA-531 PO; +GABA100C PO; -GLIP5POW MC; +GLIP5TAB11 PO; -ISOS1TAB2 PO; -LABE200T5 PO; +LOSA100T58 PO; -METO-408 PO; -TORS20TA4 PO; +VIT D PO; -[UNRECOGNIZED DRUG - OTHER] PO
[2020-03-06] MEDS: CEFAZOLIN SODIUM 1 GM VIAL IVP SCH ×2 (06:30→08:48)
[2020-03-06] MEDS: SODIUM CHLORIDE 0.9% 500ML 500 ML IV SCH ×4 (07:00→10:34)
[2020-03-06] MEDS ORDERED: LIDOCAINE PF 2% 5ML ABBOJECT ONE (07:43)
[2020-03-06] MEDS ORDERED: SUCCINYLCHOLINE CHLORIDE 20 MG/ML 10 ML VIAL ONE (07:43)
[2020-03-06] MEDS ORDERED: DEXAMETHASONE SOD PHOSPHATE 10MG/ML 1ML VIAL ONE (07:43)
[2020-03-06] MEDS ORDERED: GLYCOPYRROLATE 1 MG/5 ML SYRINGE ONE (07:44)
[2020-03-06] MEDS ORDERED: PROPOFOL 10 MG/ML 20ML VIAL IV ONE (07:44)
[2020-03-06] MEDS ORDERED: ONDANSETRON HCL 4 MG/2 ML VIAL ONE (07:44)
[2020-03-06] MEDS ORDERED: NEOSTIGMINE 5MG/5ML SYR IV ONE (07:44)
[2020-03-06] MEDS ORDERED: MIDAZOLAM HCL 1 MG/ML 2ML VIAL ONE (07:44)
[2020-03-06] MEDS ORDERED: ROCURONIUM 10MG/1ML SYR 10 MG/ML ML ONE (07:44)
[2020-03-06] MEDS ORDERED: FENTANYL CITRATE PF 50 MCG/1 ML 2ML VIAL ONE (07:45)
[2020-03-06] MEDS ORDERED: BUPIVACAINE/PF 0.5% 30ML VIAL ONE (08:34)
[2020-03-06] MEDS ORDERED: EPHEDRINE SULFATE 50 MG/ML AMPULE ONE (08:49)
[2020-03-06] MEDS ORDERED: ALBUMIN (HUMAN) 25% 100 ML IV ONE (08:53)
[2020-03-06] MEDS ORDERED: SODI325T PO (08:59)
[2020-03-06] MEDS ORDERED: LABETALOL HCL 5 MG/ML 20ML VIAL IV ONE (09:28)
--- NOTE | 2020-03-06 11:45 | NUR ---
DISCHARGE VERBAL AND WRITTEN DISCHARGE INSTRUCTIONS PROVIDED TO PATIENT AND SON-SHILPA VIA PHONE- VERBALIZED UNDERSTANDING. NEW WRITTEN RX PROVIDED TO PATIENT. NO DISTRESS NOTED. PERITONEAL CATHETER SITE DRESSING- CLEAN, DRY, AND INTACT. PATIENT STATES NO COMPLAINTS OF PAIN. IV REMOVED- CATHETER INTACT. PATIENT DISCHARGED VIA WHEELCHAIR ACCOMPANIED BY SON.
== END 2020-03-06 11:50 ==
LOC: DAH 06:16
PROVIDERS: ATTEND Student in an Organized Health Care Education/Training Program
DX: I13.2 Hypertensive heart and chronic kidney disease with heart failure and with stage 5 chronic kidney disease, or end stage renal disease (principal); E11.22 Type 2 diabetes mellitus with diabetic chronic kidney disease; I50.9 Heart failure, unspecified; N18.6 End stage renal disease; Z99.2 Dependence on renal dialysis; E03.9 Hypothyroidism, unspecified; Z90.49 Acquired absence of other specified parts of digestive tract; Z90.710 Acquired absence of both cervix and uterus; Z20.828 Contact with and (suspected) exposure to other viral communicable diseases; Z79.82 Long term (current) use of aspirin; Z79.899 Other long term (current) drug therapy
CPT/HCPCS: 36415 ×2; 49324; 71045; 80053; 82948 ×2; 84132; 85025; 85610; 85730; 93005; A4215; A4216; A4221; A4222; A4223; A4606; A4649; A6206; A6207; C1752; C1769 ×3; C9803; G0168; J0330; J0690; J1100; J2001; J2250; J2405; J2704; J2710; J3010; J3490 ×4; J7030; J7040 ×2; P9047; U0003

== ENCOUNTER 2020-05-14 07:55 | Day surgery (SDC) | payer OTHER ==
[2020-05-10 10:45] VITALS: BP_SYST 158; BP_SYST 202; BP_DIAS 71; BP_DIAS 80
[2020-05-10 11:08] LABS: BASOPHILS % (AUTO) 0.9 % (0.0-5.0); EOSINOPHILS % (AUTO) 1.7 % (0.0-8.0); HEMATOCRIT 44.9 % (36-48); LYMPHOCYTES % (AUTO) 19.1 % (21.0-51.0); MEAN CORPUSCULAR HEMOGLOBIN 28.5 pg (27.0-33.0); MEAN CORPUSCULAR HGB CONC 31.6 g/dL (32.0-36.0); MONOCYTES % (AUTO) 4.7 % (3.0-13.0); PLATELET COUNT (AUTO) 264 K/uL (130-400); RED BLOOD CELL COUNT(AUTO) 4.99 MIL/uL (4.00-5.50); RED CELL DISTRIBUTION WIDTH 14.6 % (11.0-15.5)
[2020-05-10 11:22] LABS: CREATININE 5.3 mg/dL (0.5-1.5); POTASSIUM 4.8 mmol/L (3.5-5.1)
[2020-05-10 12:04] LABS: INR 1.04 (0.85-1.15); PROTHROMBIN TIME 11.1 SEC (9.6-11.6)
[2020-05-10 12:05] LABS: PARTIAL THROMBOPLASTIN TIME 25.1 SEC (26.3-35.5)
[~2020-05-14] VITALS: Ht 152.4 cm; Wt 96.3 kg
[~2020-05-14 07:55] MED LIST changes: +B&C/1TAB3 PO; +CHOL2000 PO; -GABA100C PO; +GABA600T10 PO; +GENT15CR7 TP; +SEVE800T27 PO; -VIT D PO
[2020-05-14 08:01] VITALS: BP 205/74
[2020-05-14 08:19] VITALS: BP 166/65
[2020-05-14] MEDS ORDERED: LIDOCAINE HCL 1% MDV 50ML VIAL ONE (08:57)
[2020-05-14] MEDS ORDERED: SODIUM CHLORIDE 0.9% 1000ML 1,000 ML IV ONE (10:36)
[2020-05-14 11:50] VITALS: BP 173/52
[2020-05-14 12:05] VITALS: BP 173/58
[2020-05-14 12:20] VITALS: BP 154/53
[2020-05-14 12:35] VITALS: BP 149/73
== END 2020-05-14 13:00 | disposition home or self-care (01) ==
LOC: DAH 07:55
PROVIDERS: ATTEND Internal Medicine Nephrology
DX: Z45.2 Encounter for adjustment and management of vascular access device (principal); E11.40 Type 2 diabetes mellitus with diabetic neuropathy, unspecified; M19.90 Unspecified osteoarthritis, unspecified site; I10 Essential (primary) hypertension; Z90.710 Acquired absence of both cervix and uterus; Z90.49 Acquired absence of other specified parts of digestive tract; Z79.01 Long term (current) use of anticoagulants; Z79.899 Other long term (current) drug therapy
CPT/HCPCS: 36415; 36589; 71045; 80048; 82948; 85025; 85610; 85730; A4215; A4216; A4221; A4222; A4223 ×3; A4606; A4663; J3490; J7030

== ENCOUNTER → 2020-11-13 | Outpatient (CLI) | payer OTHER ==
[~2020-11-13] MED LIST changes: -ESCI20TA36 PO; +ESCI20TA38 PO
== END | disposition home or self-care (01) ==
LOC: RAH 13:36
PROVIDERS: ATTEND Internal Medicine Critical Care Medicine
DX: R92.2 Inconclusive mammogram (principal)
CPT/HCPCS: 76641; 77065

== ENCOUNTER → 2023-10-08 | Outpatient (CLI) | payer OTHER ==
[~2023-10-08] MED LIST changes: -GLIP5TAB11 PO; +GLIP5TAB15 PO; -LOSA100T58 PO; +LOSA100T59 PO; -ROSU10TA28 PO; +ROSU10TA72 PO
== END | disposition home or self-care (01) ==
LOC: RAH 14:17
PROVIDERS: ATTEND Internal Medicine Critical Care Medicine
DX: M47.26 Other spondylosis with radiculopathy, lumbar region (principal); M48.061 Spinal stenosis, lumbar region without neurogenic claudication
CPT/HCPCS: 72148